=== PATIENT | male | born 1990 | race Caucasian/White ===

== ENCOUNTER 2017-01-27 07:30 | Emergency (ER) | payer MEDICAID ==
[2017-01-27] MEDS ORDERED: Sodium Chloride 0.9% 1,000 ML IV STA (07:45)
--- NOTE | 2017-01-27 08:46 | EDM.PDOC ---
ED HPI GENERAL MEDICAL PROBLEM - General Chief Complaint: Neurological Problem Stated Complaint: SEIZURE Time Seen by Provider: 01/27/17 07:35 Source of Information: Reports: Patient History Limitations: Reports: No Limitations - History of Present Illness INITIAL COMMENTS - FREE TEXT/NARRATIVE: Downtime T-sheet - Related Data Allergies Allergy/AdvReac Type Severity Reaction Status Date / Time No Known Allergies Allergy Verified 01/27/17 08:59 Home Meds: Home Meds Aspirin [Children's Aspirin] 81 mg PO DAILY 01/27/17 [History] Phenytoin 200 mg PO BID 01/27/17 [History] atorvaSTATin Calcium [Atorvastatin Calcium] 80 mg PO ASDIRECTED 01/27/17 [ History] levETIRAcetam [Spritam] 1,000 mg PO ASDIRECTED 01/27/17 [History] Past Medical History - Past Health History Medical/Surgical History: Denies Medical/Surgical History (see downtime t sheet) Social & Family History - Family History Family Medical History: Noncontributory (see downtime t sheet) ED ROS GENERAL - Review of Systems Review Of Systems: See Below (see downtime T-sheet) - Physical Exam Exam: See Below (see downtime T-sheet) Course - Vital Signs Last Recorded V/S: Last Vital Signs Temp 36.8 C 01/27/17 07:30 Pulse 71 01/27/17 09:08 Resp 16 01/27/17 09:08 BP 96/60 01/27/17 09:08 Pulse Ox 96 01/27/17 09:08 - Orders/Labs/Meds Orders: Active Orders 24 hr Category Date Time Status EKG Documentation Completion [RC] STAT Care 01/27/17 12:18 Active Labs: Laboratory Tests 01/27/17 01/27/17 Range/Units 08:05 08:05 WBC 8.17 (4.0-11.0) K/uL RBC 5.00 (4.50-5.90) M/uL Hgb 16.8 (13.0-17.0) g/dL Hct 48.7 (38.0-50.0) % MCV 97.4 (80.0-98.0) fL MCH 33.6 H (27.0-32.0) pg MCHC 34.5 (31.0-37.0) g/dL RDW Std Deviation 45.1 (28.0-62.0) fl RDW Coeff of Paramjit 13 (11.0-15.0) % Plt Count 225 (150-400) K/uL MPV 10.80 (7.40-12.00) fL Neut % (Auto) 59.8 (48.0-80.0) % Lymph % (Auto) 29.5 (16.0-40.0) % Donley % (Auto) 7.0 (0.0-15.0) % Eos % (Auto) 3.3 (0.0-7.0) % Baso % (Auto) 0.4 (0.0-1.5) % Neut # (Auto) 4.9 (1.4-5.7) K/uL Lymph # (Auto) 2.4 (0.6-2.4) K/uL Donley # (Auto) 0.6 (0.0-0.8) K/uL Eos # (Auto) 0.3 (0.0-0.7) K/uL Baso # (Auto) 0.0 (0.0-0.1) K/uL Nucleated RBC % 0.0 /100WBC Nucleated RBCs # 0 K/uL Sodium 138 (136-146) mmol/L Potassium 4.6 (3.5-5.1) mmol/L Chloride 107 (98-110) mmol/L Carbon Dioxide 22 (21-31) mmol/L BUN 13 (6.0-23.0) mg/dL Creatinine 0.7 (0.6-1.5) mg/dL Est Cr Clr Drug Dosing TNP Estimated GFR (MDRD) > 60.0 ml/min Glucose 97 (60-110) mg/dL Calcium 9.0 (8.8-10.8) mg/dL Total Bilirubin 0.2 (0.1-1.5) mg/dL AST 22 (5-40) IU/L ALT 30 (8-54) IU/L Alkaline Phosphatase 81 (40-150) Total Protein 6.9 (6.0-8.0) g/dL Albumin 4.2 (3.5-5.0) g/dL Globulin 2.7 (2.0-3.5) g/dL Albumin/Globulin Ratio 1.6 (1.3-2.8) Phenytoin 10.26 (10-20) ug/mL Ethyl Alcohol < 10.0 mg/dL Meds: Medications Discontinued Medications Generic Name Dose Route Start Last Admin Trade Name Patricia PRN Reason Stop Dose Admin Sodium Chloride 1,000 mls @ 999 mls/hr 01/27/17 07:45 01/27/17 08:05 Normal Saline IV 01/27/17 08:45 999 mls/hr NOW STA Administration Departure - Departure Time of Disposition: 08:47 Disposition: Home, Self-Care 01 Condition: Good Clinical Impression: Observed seizure-like activity - Discharge Information Instructions: Epilepsy, [id number] Referrals: PCP,None [Primary Care Provider] - Stacy Lofton MD [Physician] - Forms: ED Department Discharge Additional Instructions: The following information is given to patients seen in the emergency department who are being discharged to home. This information is to outline your options for follow-up care. We provide all patients seen in our emergency department with a follow-up referral. The need for follow-up, as well as the timing and circumstances, are variable depending upon the specifics of your emergency department visit. If you don't have a primary care physician on staff, we will provide you with a referral. We always advise you to contact your personal physician following an emergency department visit to inform them of the circumstance of the visit and for follow-up with them and/or the need for any referrals to a consulting specialist. The emergency department will also refer you to a specialist when appropriate. This referral assures that you have the opportunity for follow-up care with a specialist. All of these measure are taken in an effort to provide you with optimal care, which includes your follow-up. Under all circumstances we always encourage you to contact your private physician who remains a resource for coordinating your care. When calling for follow-up care, please make the office aware that this follow-up is from your recent emergency room visit. If for any reason you are refused follow-up, please contact the [facility] Emergency Department at and asked to speak to the emergency department charge nurse. Please follow up with your primary care provider and neurology as discussed. Please return to seek further medical attention if you experience any further seizure activity, confusion, nausea, or vomiting. - My Orders Last 24 Hours: My Active Orders 01/27/17 12:18 EKG Documentation Completion [RC] STAT - Assessment/Plan Last 24 Hours: My Active Orders 01/27/17 12:18 EKG Documentation Completion [RC] STAT
[2017-01-27 09:03] LABS: CHLORIDE,CL 107 mmol/L (98-110); SODIUM,NA 138 mmol/L (136-146)
[2017-01-27 09:36] VITALS: BP 96/60
== END 2017-01-27 09:08 | disposition home or self-care (01) ==
LOC: MW.ED 07:30 → EDBD 07:30 → MW.ED 09:08
DX: R56.9 Unspecified convulsions (principal); Z79.82 Long term (current) use of aspirin
CPT/HCPCS: 80053; 80177; 80185; 85025; 93005; 96360; 99284; G0480; J7040; 36415; 99282

== ENCOUNTER 2017-05-25 13:15 | Emergency (ER) | payer MEDICAID ==
--- NOTE | 2017-05-25 13:39 | EDM.PDOC ---
ED HPI GENERAL MEDICAL PROBLEM - General Chief Complaint: Medication Administration Stated Complaint: MEDICATION REFILL Time Seen by Provider: 05/25/17 13:36 Source of Information: Reports: Patient, Family History Limitations: Reports: No Limitations - History of Present Illness INITIAL COMMENTS - FREE TEXT/NARRATIVE: HISTORY AND PHYSICAL: History of present illness: Patient is a 26-year-old male who presents to the emergency room with his father with a request for medication refill. Patient does have a history of a seizure disorder and normally gets his medications male to him. Due to the holidays his medication has been "lost in the mail" and will be a few days late. Patient normally takes phenytoin and spiritam twice a day. Has not had any recurrence through seizures. Offers no current systemic complaints. Review of systems: As per history of present illness and below otherwise all systems reviewed and negative. Past medical history: As per history of present illness and as reviewed below otherwise noncontributory. Surgical history: As per history of present illness and as reviewed below otherwise noncontributory. Social history: No reported history of drug or alcohol abuse. Family history: As per history of present illness and as reviewed below otherwise noncontributory. Physical exam: HEENT: Atraumatic, normocephalic, pupils reactive, negative for conjunctival pallor or scleral icterus, mucous membranes moist, throat clear, neck supple, nontender, trachea midline. Lungs: Clear to auscultation, breath sounds equal bilaterally, chest nontender. Heart: S1S2, regular, negative for clicks, rubs, or JVD. Abdomen: Soft, nondistended, nontender. Extremities: Atraumatic, negative for cords or calf pain. Neurovascular unremarkable. Neuro: Awake, alert, oriented. Cranial nerves II through XII unremarkable. Cerebellum unremarkable. Motor and sensory unremarkable throughout. Exam nonfocal. He should has no health concerns today. He offers no systemic complaints. Will refill his home medications for 3 days, one refill- patient's father states that the medication should be coming in any day. We did discuss the need for establishing care with a primary care provider here in [place]. He voices understanding and is agreeable to plan of care. He denies any further questions at this time. Diagnostics: [] Therapeutics: [] Impression: History of seizures Request for medication refill Plan: 1. Your medications have been refilled for you for 3 days, 1 refill. Please take the medications as he acted. 2. The phone number for primary care provider has been given to you. It would be important for you to establish care if you are planning on living in the [facility] and for futher medication refills. 3. Return to the ED as needed and as discussed. Definitive disposition and diagnosis as appropriate pending reevaluation and review of above. - Related Data Allergies Allergy/AdvReac Type Severity Reaction Status Date / Time No Known Allergies Allergy Verified 05/25/17 13:25 Home Meds: Home Meds Phenytoin 200 mg PO BID 01/27/17 [History] levETIRAcetam [Spritam] 1,000 mg PO BID 01/27/17 [History] Past Medical History - Past Health History Medical/Surgical History: Denies Medical/Surgical History Neurological History: Reports: Seizure Psychiatric History: Reports: Other (See Below) Other Psychiatric History: Down Syndrome - Past Surgical History Neurological Surgical History: Reports: Other (See Below) Other Neurological Surgeries/Procedures: Traumatic Brain Injury Social & Family History - Family History Family Medical History: Noncontributory - Tobacco Use Smoking Status *Q: Current Every Day Smoker Years of Tobacco use: 7 Packs/Tins Daily: 1 - Caffeine Use Caffeine Use: Reports: None - Recreational Drug Use Recreational Drug Use: Yes Drug Use in Last 12 Months: Yes Recreational Drug Type: Reports: Marijuana/Hashish ED ROS GENERAL - Review of Systems Review Of Systems: ROS reveals no pertinent complaints other than HPI. ED EXAM, GENERAL - Physical Exam Exam: See Below (See dictation) Course - Vital Signs Last Recorded V/S: Last Vital Signs Temp 97.4 F 05/25/17 13:15 Pulse 73 05/25/17 13:15 Resp 18 05/25/17 13:15 BP 128/69 05/25/17 13:15 Pulse Ox 94 L 05/25/17 13:15 Departure - Departure Time of Disposition: 13:38 Disposition: Home, Self-Care 01 Clinical Impression: Encounter for medication refill, History of seizures - Discharge Information Instructions: Medical Screening Exam Referrals: PCP,None [Primary Care Provider] - Forms: ED Department Discharge Additional Instructions: My general discharge The following information is given to patients seen in the emergency department who are being discharged to home. This information is to outline your options for follow-up care. We provide all patients seen in our emergency department with a follow-up referral. The need for follow-up, as well as the timing and circumstances, are variable depending upon the specifics of your emergency department visit. If you don't have a primary care physician on staff, we will provide you with a referral. We always advise you to contact your personal physician following an emergency department visit to inform them of the circumstance of the visit and for follow-up with them and/or the need for any referrals to a consulting specialist. The emergency department will also refer you to a specialist when appropriate. This referral assures that you have the opportunity for follow-up care with a specialist. All of these measure are taken in an effort to provide you with optimal care, which includes your follow-up. Under all circumstances we always encourage you to contact your private physician who remains a resource for coordinating your care. When calling for follow-up care, please make the office aware that this follow-up is from your recent emergency room visit. If for any reason you are refused follow-up, please contact the [facility] Emergency Department at and asked to speak to the emergency department charge nurse. [facility] [address] [place] [address] [facility] [address] [place] [id number] 1. Your medications have been refilled for you for 3 days, 1 refill. Please take the medications as he acted. 2. The phone number for primary care provider has been given to you. It would be important for you to establish care if you are planning on living in the [facility]. A primary care provider could also make sure that your medications are refilled. 3. Return to the ED as needed and as discussed.
[2017-05-25 13:47] VITALS: BP 128/69
== END 2017-05-25 13:43 | disposition home or self-care (01) ==
LOC: MW.ED 13:15
DX: Z76.0 Encounter for issue of repeat prescription (principal); G40.909 Epilepsy, unspecified, not intractable, without status epilepticus; F17.210 Nicotine dependence, cigarettes, uncomplicated
CPT/HCPCS: 99281

== ENCOUNTER 2018-08-22 16:30 | Emergency (ER) | payer MEDICAID ==
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
[2018-08-22 17:17] VITALS: BP 103/69
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
== END 2018-08-22 17:45 | disposition home or self-care (01) ==
LOC: MW.ED 16:30
DX: S01.81XA Laceration without foreign body of other part of head, initial encounter (principal); S21.211A Laceration without foreign body of right back wall of thorax without penetration into thoracic cavity, initial encounter; Y09 Assault by unspecified means
CPT/HCPCS: 12001; 12011; 71045; 99285; J2001

== ENCOUNTER 2018-09-02 14:25 | Emergency (ER) | payer MEDICAID ==
[2018-09-02 14:48] VITALS: BP 99/57
== END 2018-09-02 14:48 | disposition left against medical advice (07) ==
LOC: MW.ED 14:25
DX: Z53.21 Procedure and treatment not carried out due to patient leaving prior to being seen by health care provider (principal)

== ENCOUNTER 2018-11-28 09:15 | Emergency (ER) | payer MEDICAID ==
[2018-11-28] MEDS ORDERED: Sodium Chloride 0.9% 1,000 ML IV ONE (09:31)
--- NOTE | 2018-11-28 10:04 | EDM.PDOC ---
ED HPI GENERAL MEDICAL PROBLEM - General Chief Complaint: General Stated Complaint: DIZZY/OFF BALANCE Time Seen by Provider: 11/28/18 09:56 - History of Present Illness INITIAL COMMENTS - FREE TEXT/NARRATIVE: HISTORY AND PHYSICAL: History of present illness: Patient is a 28-year-old white male with history of traumatic brain injury with posttraumatic seizure disorder presents with a concern of several falls over the last several days patient does occasionally drink excessively and he does use marijuana he denies any other drug or concern. There is been no headache no other neurological signs or symptoms. Review of systems: As per history of present illness and below otherwise all systems reviewed and negative. Past medical history: As per history of present illness and as reviewed below otherwise noncontributory. Surgical history: As per history of present illness and as reviewed below otherwise noncontributory. Social history: No reported history of drug or alcohol abuse. Family history: As per history of present illness and as reviewed below otherwise noncontributory. Physical exam: HEENT: Atraumatic, normocephalic, pupils reactive, negative for conjunctival pallor or scleral icterus, mucous membranes moist, throat clear, neck supple, nontender, trachea midline. Lungs: Clear to auscultation, breath sounds equal bilaterally, chest nontender. Heart: S1S2, regular, negative for clicks, rubs, or JVD. Abdomen: Soft, nondistended, nontender. Negative for masses or hepatosplenomegaly. Negative for costovertebral tenderness. Pelvis: Stable nontender. Genitourinary: Deferred. Rectal: Deferred. Extremities: Atraumatic, negative for cords or calf pain. Neurovascular unremarkable. Neuro: Awake, alert, follows commands moves all extremities limited grossly nonfocal exam. Diagnostics: CBC CMP EKG CT brain Therapeutics: Saline 1 L bolus Impression: #1 history of traumatic brain injury #2 medical screening exam #3 history of posttraumatic seizure disorder Definitive disposition and diagnosis as appropriate pending reevaluation and review of above. - Related Data Allergies Allergy/AdvReac Type Severity Reaction Status Date / Time No Known Allergies Allergy Verified 11/28/18 09:37 Home Meds: Home Meds Phenytoin 200 mg PO BID 01/27/17 [History] levETIRAcetam [Spritam] 1,000 mg PO BID 01/27/17 [History] Past Medical History - Past Health History Medical/Surgical History: Denies Medical/Surgical History HEENT History: Reports: None Cardiovascular History: Reports: None Respiratory History: Reports: None Gastrointestinal History: Reports: None Genitourinary History: Reports: None Musculoskeletal History: Reports: Back Pain, Chronic, Other (See Below) Other Musculoskeletal History: leg length discrepancy, left shorter than right Neurological History: Reports: Cerebral Palsy, Head Trauma, Seizure, Other (See Below) Other Neuro History: Traumatic Brain Injury Psychiatric History: Reports: Other (See Below) Other Psychiatric History: Down Syndrome Endocrine/Metabolic History: Reports: None Hematologic History: Reports: None Immunologic History: Reports: None Oncologic (Cancer) History: Reports: None Dermatologic History: Reports: None - Infectious Disease History Infectious Disease History: Reports: Scarlet Fever - Past Surgical History Head Surgeries/Procedures: Reports: None HEENT Surgical History: Reports: None Cardiovascular Surgical History: Reports: None Respiratory Surgical History: Reports: None GI Surgical History: Reports: None Male Surgical History: Reports: None Endocrine Surgical History: Reports: None Neurological Surgical History: Reports: Other (See Below) Other Neurological Surgeries/Procedures: Traumatic Brain Injury Oncologic Surgical History: Reports: None Dermatological Surgical History: Reports: None Social & Family History - Family History Family Medical History: Noncontributory - Tobacco Use Smoking Status *Q: Current Every Day Smoker Years of Tobacco use: 10 Packs/Tins Daily: 1 - Caffeine Use Caffeine Use: Reports: None - Recreational Drug Use Recreational Drug Use: Yes Drug Use in Last 12 Months: Yes Recreational Drug Type: Reports: Marijuana/Hashish Recreational Drug Use Frequency: Socially ED ROS GENERAL - Review of Systems Review Of Systems: ROS reveals no pertinent complaints other than HPI. ED EXAM, GENERAL - Physical Exam Exam: See Below (See dictation) Course - Vital Signs Last Recorded V/S: Last Vital Signs Temp 36.4 C 11/28/18 09:32 Pulse 68 11/28/18 09:32 Resp 16 11/28/18 09:32 BP 118/63 11/28/18 09:32 Pulse Ox 94 L 11/28/18 09:32 - Orders/Labs/Meds Orders: Active Orders 24 hr Category Date Time Status EKG 12 Lead [EKG Documentation Completion] [RC] STAT Care 11/28/18 09:31 Active Head wo Cont [CT] Stat Exams 11/28/18 09:31 Ordered Labs: Laboratory Tests 11/28/18 11/28/18 Range/Units 09:40 09:40 WBC 7.52 (4.0-11.0) K/uL RBC 4.67 (4.50-5.90) M/uL Hgb 15.6 (13.0-17.0) g/dL Hct 45.3 (38.0-50.0) % MCV 97.0 (80.0-98.0) fL MCH 33.4 H (27.0-32.0) pg MCHC 34.4 (31.0-37.0) g/dL RDW Std Deviation 46.0 (28.0-62.0) fl RDW Coeff of Paramjit 13 (11.0-15.0) % Plt Count 211 (150-400) K/uL MPV 10.20 (7.40-12.00) fL Neut % (Auto) 55.4 (48.0-80.0) % Lymph % (Auto) 31.6 (16.0-40.0) % Tillman % (Auto) 8.5 (0.0-15.0) % Eos % (Auto) 4.1 (0.0-7.0) % Baso % (Auto) 0.4 (0.0-1.5) % Neut # (Auto) 4.2 (1.4-5.7) K/uL Lymph # (Auto) 2.4 (0.6-2.4) K/uL Tillman # (Auto) 0.6 (0.0-0.8) K/uL Eos # (Auto) 0.3 (0.0-0.7) K/uL Baso # (Auto) 0.0 (0.0-0.1) K/uL Nucleated RBC % 0.0 /100WBC Nucleated RBCs # 0 K/uL Sodium 139 (136-148) mmol/L Potassium 4.2 (3.5-5.1) mmol/L Chloride 105 (98-107) mmol/L Carbon Dioxide 25.5 (21.0-32.0) mmol/L BUN 10 (7.0-18.0) mg/dL Creatinine 0.6 L (0.8-1.3) mg/dL Est Cr Clr Drug Dosing TNP Estimated GFR (MDRD) > 60.0 ml/min Glucose 99 (74-106) mg/dL Calcium 8.5 (8.5-10.1) mg/dL Total Bilirubin 0.2 (0.2-1.0) mg/dL AST 16 (15-37) IU/L ALT 19 (14-63) IU/L Alkaline Phosphatase 117 H (46-116) U/L Total Protein 6.8 (6.4-8.2) g/dL Albumin 3.8 (3.4-5.0) g/dL Globulin 3.0 (2.6-4.0) g/dL Albumin/Globulin Ratio 1.3 (0.9-1.6) Meds: Medications Discontinued Medications Generic Name Dose Route Start Last Admin Trade Name Patricia PRN Reason Stop Dose Admin Sodium Chloride 1,000 mls @ 999 mls/hr 11/28/18 09:31 11/28/18 09:44 Normal Saline IV 11/28/18 10:31 999 mls/hr .Bolus ONE Administration Departure - Departure Time of Disposition: 10:39 Disposition: Home, Self-Care 01 Condition: Good Clinical Impression: Encounter for medical screening examination, History of traumatic brain injury , History of seizures - Discharge Information Referrals: Ada Tristan NP [Primary Care Provider] - Forms: ED Department Discharge Additional Instructions: The following information is given to patients seen in the emergency department who are being discharged to home. This information is to outline your options for follow-up care. We provide all patients seen in our emergency department with a follow-up referral. The need for follow-up, as well as the timing and circumstances, are variable depending upon the specifics of your emergency department visit. If you don't have a primary care physician on staff, we will provide you with a referral. We always advise you to contact your personal physician following an emergency department visit to inform them of the circumstance of the visit and for follow-up with them and/or the need for any referrals to a consulting specialist. The emergency department will also refer you to a specialist when appropriate. This referral assures that you have the opportunity for followup care with a specialist. All of these measure are taken in an effort to provide you with optimal care, which includes your followup. Under all circumstances we always encourage you to contact your private physician who remains a resource for coordinating your care. When calling for followup care, please make the office aware that this follow-up is from your recent emergency room visit. If for any reason you are refused follow-up, please contact the [facility] emergency department at and asked to speak to the emergency department charge nurse. Continue current medications follow private medical doctor as discussed return as needed as discussed - My Orders Last 24 Hours: My Active Orders 11/28/18 09:31 EKG 12 Lead [EKG Documentation Completion] [RC] STAT Head wo Cont [CT] Stat - Assessment/Plan Last 24 Hours: My Active Orders 11/28/18 09:31 EKG 12 Lead [EKG Documentation Completion] [RC] STAT Head wo Cont [CT] Stat
[2018-11-28 10:36] LABS: CHLORIDE,CL 105 mmol/L (98-107); SODIUM,NA 139 mmol/L (136-148)
--- NOTE | 2018-11-28 11:14 | CT ---
EXAMINATION: Non contrast CT head. Coronal and sagittal reformats. HISTORY: Multiple falls FINDINGS: No evidence of intra or extra axial hemorrhage, mass, midline shift, hydrocephalus or edema. Large area of postsurgical encephalomalacia within the right frontal lobe and less so within the adjacent left frontal lobe anteriorly. There is also encephalomalacia within the superior and medial left frontal lobe posteriorly. No hypoattenuation changes in the major vascular territories to suggest acute infarct. No abnormal intracranial calcifications are detected. No evidence of substantial vascular calcifications. There is opacification of the left frontal sinus and the anterior left ethmoid air cells. Mastoid air cells and middle ears are clear. Orbits and globes are otherwise symmetric. Pituitary fossa appears unremarkable. Calvarium is intact. No evidence of skull fracture. IMPRESSION: 1. Multifocal areas of encephalomalacia bilaterally without an acute intracranial findings. 2. Mild paranasal sinus disease.
[2018-11-28 11:31] VITALS: BP 81/45
== END 2018-11-28 11:31 | disposition home or self-care (01) ==
LOC: MW.ED 09:15
DX: Z13.9 Encounter for screening, unspecified (principal); F17.210 Nicotine dependence, cigarettes, uncomplicated; F12.90 Cannabis use, unspecified, uncomplicated; Z79.899 Other long term (current) drug therapy; Z87.820 Personal history of traumatic brain injury; Z86.69 Personal history of other diseases of the nervous system and sense organs
CPT/HCPCS: 36415; 70450; 80053; 85025; 93005; 96360; 96361; 99284; J7040

== ENCOUNTER 2018-11-28 19:19 | Emergency (ER) | payer MEDICAID ==
[2018-11-28 20:07] VITALS: BP 121/75
[2018-11-28] MEDS ORDERED: Scopolamine 1.5 MG Transdermal Patch TRDERM PRN (20:26)
--- NOTE | 2018-11-28 20:27 | EDM.PDOC ---
ED HPI GENERAL MEDICAL PROBLEM - General Chief Complaint: General Stated Complaint: CAN'T STAND OR WALK Time Seen by Provider: 11/28/18 20:27 Source of Information: Reports: Patient, Family History Limitations: Reports: No Limitations - History of Present Illness INITIAL COMMENTS - FREE TEXT/NARRATIVE: HISTORY AND PHYSICAL: History of present illness: Patient is a 28-year-old male with mental delay secondary to history of traumatic brain injury presents to the ED with dad for concern of dizziness. Patient was evaluated earlier today in ED with negative head CT and unremarkable blood work. Dad is concerned that he can hardly walk without grabbing on to anything and has fallen multiple times. He states this started a few weeks ago and has progressively gotten worse. He is on keppra and phenytoin for seizure disorder. Dad states he recently had his doses increased and yesterday he accidentally took a double dose of his morning medication. He denies recent head injury, headache, fevers, chills, chest pain, SOB, abdominal pain. Review of systems: As per history of present illness and below otherwise all systems reviewed and negative. Past medical history: As per history of present illness and as reviewed below otherwise noncontributory. Surgical history: As per history of present illness and as reviewed below otherwise noncontributory. Social history: No reported history of drug or alcohol abuse. Family history: As per history of present illness and as reviewed below otherwise noncontributory. Physical exam: General: Patient sitting comfortably in no acute distress and nontoxic appearing HEENT: Atraumatic, normocephalic, pupils reactive, negative for conjunctival pallor or scleral icterus, mucous membranes moist, throat clear, neck supple, nontender, trachea midline. No meningeal signs. Lungs: Clear to auscultation, breath sounds equal bilaterally, chest nontender. Heart: S1S2, regular, negative for clicks, rubs, or overt murmur. Abdomen: Soft, nondistended, nontender. Negative for masses or hepatosplenomegaly. Negative for costovertebral tenderness. No rigidity, rebound , guarding. Pelvis: Stable nontender. Genitourinary: Deferred. Rectal: Deferred. Extremities: Atraumatic, negative for cords or calf pain. Neurovascular unremarkable. Neuro: Awake, alert, oriented. Cranial nerves II through XII unremarkable. Cerebellum unremarkable. Motor and sensory unremarkable throughout. Exam nonfocal. Notes: Discussed with patient that his work up earlier was negative. I did add drug levels but explained that we will not receive these results today. I advised close follow up with PCP and made a referral to neurology. Diagnostics: Keppra levels Phenytoin levels Therapeutics: Scopolamine patch Prescriptions: Scopolamine patch Impression: Dizziness Plan: 1. Take medication as instructed 2. Follow up with primary care provider 3. Return to ED as needed as discussed Definitive disposition and diagnosis as appropriate pending reevaluation and review of above. - Related Data Allergies Allergy/AdvReac Type Severity Reaction Status Date / Time No Known Allergies Allergy Verified 11/28/18 09:37 Home Meds: Home Meds Phenytoin 200 mg PO BID 01/27/17 [History] levETIRAcetam [Spritam] 1,000 mg PO BID 01/27/17 [History] Scopolamine [Transderm-Scop] 1 each TD DAILY #10 patch.td.3 11/28/18 [Rx] Past Medical History - Past Health History Medical/Surgical History: Denies Medical/Surgical History HEENT History: Reports: None Cardiovascular History: Reports: None Respiratory History: Reports: None Gastrointestinal History: Reports: None Genitourinary History: Reports: None Musculoskeletal History: Reports: Back Pain, Chronic, Other (See Below) Other Musculoskeletal History: leg length discrepancy, left shorter than right Neurological History: Reports: Cerebral Palsy, Head Trauma, Seizure, Other (See Below) Other Neuro History: Traumatic Brain Injury Psychiatric History: Reports: Other (See Below) Other Psychiatric History: Down Syndrome Endocrine/Metabolic History: Reports: None Hematologic History: Reports: None Immunologic History: Reports: None Oncologic (Cancer) History: Reports: None Dermatologic History: Reports: None - Infectious Disease History Infectious Disease History: Reports: Scarlet Fever - Past Surgical History Head Surgeries/Procedures: Reports: None HEENT Surgical History: Reports: None Cardiovascular Surgical History: Reports: None Respiratory Surgical History: Reports: None GI Surgical History: Reports: None Male Surgical History: Reports: None Endocrine Surgical History: Reports: None Neurological Surgical History: Reports: Other (See Below) Other Neurological Surgeries/Procedures: Traumatic Brain Injury Oncologic Surgical History: Reports: None Dermatological Surgical History: Reports: None Social & Family History - Family History Family Medical History: Noncontributory - Caffeine Use Caffeine Use: Reports: None ED ROS GENERAL - Review of Systems Review Of Systems: ROS reveals no pertinent complaints other than HPI. ED EXAM, GENERAL - Physical Exam Exam: See Below (see dictation) Course - Vital Signs Last Recorded V/S: Last Vital Signs Temp 98.2 F 11/28/18 20:00 Pulse 66 11/28/18 20:00 Resp 18 11/28/18 20:00 BP 121/75 11/28/18 20:00 Pulse Ox 95 11/28/18 20:00 Orthostatic Blood Pressure [ 119/65 Standing] Orthostatic Blood Pressure [ 110/65 Sitting] Orthostatic Blood Pressure [ 122/75 Supine] - Orders/Labs/Meds Orders: Active Orders 24 hr Category Date Time Status Orthostatic Vital Signs [RC] ASDIRECTED Care 11/28/18 20:22 Active LEVETIRACETAM, S [REF] Stat Lab 11/28/18 20:40 Received PHENYTOIN,FREE AND TOTAL,SERUM [REF] Stat Lab 11/28/18 20:40 Received Meds: Medications Discontinued Medications Generic Name Dose Route Start Last Admin Trade Name Freq PRN Reason Stop Dose Admin Scopolamine 1.5 mg 11/28/18 20:26 11/28/18 20:38 Transderm-Scop TRDERM 1.5 mg Q72H PRN Administration Dizziness Departure - Departure Time of Disposition: 21:05 Disposition: Home, Self-Care 01 Condition: Good Clinical Impression: Dizziness, Gait abnormality - Discharge Information Prescriptions: Scopolamine [Transderm-Scop] 1 each TD DAILY #10 patch.td.3 Instructions: Dizziness, [id number] Referrals: Ada Tristan NP [Primary Care Provider] - Stacy Lofton MD [Physician] - 1 Week (Ataxia, dizziness, history of seizure disorder ) Forms: ED Department Discharge Additional Instructions: The following information is given to patients seen in the emergency department who are being discharged to home. This information is to outline your options for follow-up care. We provide all patients seen in our emergency department with a follow-up referral. The need for follow-up, as well as the timing and circumstances, are variable depending upon the specifics of your emergency department visit. If you don't have a primary care physician on staff, we will provide you with a referral. We always advise you to contact your personal physician following an emergency department visit to inform them of the circumstance of the visit and for follow-up with them and/or the need for any referrals to a consulting specialist. The emergency department will also refer you to a specialist when appropriate. This referral assures that you have the opportunity for follow-up care with a specialist. All of these measure are taken in an effort to provide you with optimal care, which includes your follow-up. Under all circumstances we always encourage you to contact your private physician who remains a resource for coordinating your care. When calling for follow-up care, please make the office aware that this follow-up is from your recent emergency room visit. If for any reason you are refused follow-up, please contact the [facility] Emergency Department at and asked to speak to the emergency department charge nurse. [facility] [address] [place] [address] [place] [address] [facility] Special[facility] - Neurology Professional Building [address] [place] [address], [address] [place] [address] - My Orders Last 24 Hours: My Active Orders 11/28/18 20:22 Orthostatic Vital Signs [RC] ASDIRECTED 11/28/18 20:40 LEVETIRACETAM, S [REF] Stat PHENYTOIN,FREE AND TOTAL,SERUM [REF] Stat - Assessment/Plan Last 24 Hours: My Active Orders 11/28/18 20:22 Orthostatic Vital Signs [RC] ASDIRECTED 11/28/18 20:40 LEVETIRACETAM, S [REF] Stat PHENYTOIN,FREE AND TOTAL,SERUM [REF] Stat
== END 2018-11-28 23:00 | disposition home or self-care (01) ==
LOC: MW.ED 19:19
DX: R42 Dizziness and giddiness (principal); R26.9 Unspecified abnormalities of gait and mobility; Z87.820 Personal history of traumatic brain injury; Z79.899 Other long term (current) drug therapy
CPT/HCPCS: 80177; 99284; A9270

== ENCOUNTER 2019-01-04 03:25 | Emergency (ER) | payer MEDICAID ==
--- NOTE | 2019-01-04 03:30 | EDM.PDOC ---
ED HPI GENERAL MEDICAL PROBLEM - General Chief Complaint: General Stated Complaint: MEDICAL CLEARENCE Time Seen by Provider: 01/04/19 03:28 - History of Present Illness INITIAL COMMENTS - FREE TEXT/NARRATIVE: HISTORY AND PHYSICAL: History of present illness: Patient's 28-year-old male in custody of 06/09#for medical clearance has no complaints Review of systems: As per history of present illness and below otherwise all systems reviewed and negative. Past medical history: As per history of present illness and as reviewed below otherwise noncontributory. Surgical history: As per history of present illness and as reviewed below otherwise noncontributory. Social history: No reported history of drug or alcohol abuse. Family history: As per history of present illness and as reviewed below otherwise noncontributory. Physical exam: HEENT: Atraumatic, normocephalic, pupils reactive, negative for conjunctival pallor or scleral icterus, mucous membranes moist, throat clear, neck supple, nontender, trachea midline. Lungs: Clear to auscultation, breath sounds equal bilaterally, chest nontender. Heart: S1S2, regular, negative for clicks, rubs, or JVD. Abdomen: Soft, nondistended, nontender. Negative for masses or hepatosplenomegaly. Negative for costovertebral tenderness. Pelvis: Stable nontender. Genitourinary: Deferred. Rectal: Deferred. Extremities: Atraumatic, negative for cords or calf pain. Neurovascular unremarkable. Neuro: Awake, alert, oriented. Cranial nerves II through XII unremarkable. Cerebellum unremarkable. Motor and sensory unremarkable throughout. Exam nonfocal. Diagnostics: None Therapeutics: None Impression: #1 medical clearance for incarceration Definitive disposition and diagnosis as appropriate pending reevaluation and review of above. - Related Data Allergies Allergy/AdvReac Type Severity Reaction Status Date / Time No Known Allergies Allergy Verified 01/04/19 03:28 Home Meds: Home Meds Phenytoin 200 mg PO BID 01/27/17 [History] levETIRAcetam [Spritam] 1,000 mg PO BID 01/27/17 [History] Scopolamine [Transderm-Scop] 1 each TD DAILY #10 patch.td.3 11/28/18 [Rx] Past Medical History - Past Health History Medical/Surgical History: Denies Medical/Surgical History HEENT History: Reports: None Cardiovascular History: Reports: None Respiratory History: Reports: None Gastrointestinal History: Reports: None Genitourinary History: Reports: None Musculoskeletal History: Reports: Back Pain, Chronic, Other (See Below) Other Musculoskeletal History: leg length discrepancy, left shorter than right Neurological History: Reports: Cerebral Palsy, Head Trauma, Seizure, Other (See Below) Other Neuro History: Traumatic Brain Injury Psychiatric History: Reports: Other (See Below) Other Psychiatric History: Down Syndrome Endocrine/Metabolic History: Reports: None Hematologic History: Reports: None Immunologic History: Reports: None Oncologic (Cancer) History: Reports: None Dermatologic History: Reports: None - Infectious Disease History Infectious Disease History: Reports: Scarlet Fever - Past Surgical History Head Surgeries/Procedures: Reports: None HEENT Surgical History: Reports: None Cardiovascular Surgical History: Reports: None Respiratory Surgical History: Reports: None GI Surgical History: Reports: None Male Surgical History: Reports: None Endocrine Surgical History: Reports: None Neurological Surgical History: Reports: Other (See Below) Other Neurological Surgeries/Procedures: Traumatic Brain Injury Oncologic Surgical History: Reports: None Dermatological Surgical History: Reports: None Social & Family History - Family History Family Medical History: Noncontributory - Caffeine Use Caffeine Use: Reports: None ED ROS GENERAL - Review of Systems Review Of Systems: ROS reveals no pertinent complaints other than HPI. ED EXAM, GENERAL - Physical Exam Exam: See Below (See dictation) Departure - Departure Time of Disposition: 03:29 Disposition: Home, Self-Care 01 Condition: Good Clinical Impression: Medical clearance for incarceration - Discharge Information Referrals: PCP,None [Primary Care Provider] - Additional Instructions: The following information is given to patients seen in the emergency department who are being discharged to home. This information is to outline your options for follow-up care. We provide all patients seen in our emergency department with a follow-up referral. The need for follow-up, as well as the timing and circumstances, are variable depending upon the specifics of your emergency department visit. If you don't have a primary care physician on staff, we will provide you with a referral. We always advise you to contact your personal physician following an emergency department visit to inform them of the circumstance of the visit and for follow-up with them and/or the need for any referrals to a consulting specialist. The emergency department will also refer you to a specialist when appropriate. This referral assures that you have the opportunity for followup care with a specialist. All of these measure are taken in an effort to provide you with optimal care, which includes your followup. Under all circumstances we always encourage you to contact your private physician who remains a resource for coordinating your care. When calling for followup care, please make the office aware that this follow-up is from your recent emergency room visit. If for any reason you are refused follow-up, please contact the [facility] emergency department at and asked to speak to the emergency department charge nurse. Follow-up primary medical doctor as needed as discussed return as needed as discussed
[2019-01-04 03:44] VITALS: BP 97/58; PULSE 64
== END 2019-01-04 03:44 ==
LOC: MW.ED 03:25
DX: Z02.89 Encounter for other administrative examinations (principal); Z79.899 Other long term (current) drug therapy
CPT/HCPCS: 99282